=== PATIENT | male | born 2005 | race Caucasian/White ===

== ENCOUNTER 2024-10-17 16:42 | Emergency (ER) | payer SELFPAY ==
[~2024-10-17] VITALS: Ht 180.3 cm; Wt 54.0 kg
[2024-10-17 16:53] VITALS: O2SAT 98
[2024-10-17 16:56] VITALS: BP 124/79; PULSE 92; RESP 18; TEMP 37.2; O2SAT 99
[2024-10-17 18:01] LABS: BASOPHILS % 0.7 % (0.0-2.0); EOSINOPHILS % 2.9 % (0.0-5.0); HEMATOCRIT. 40.9 % (42.0-52.0); HEMOGLOBIN. 14.0 g/dL (14.0-18.0); LYMPHOCYTES % 13.2 % (20.0-50.0); MEAN PLATELET VOLUME 6.8 fl (7.4-10.4); MONOCYTES % 5.7 % (2.0-8.0); NEUTROPHILS % 77.5 % (40.0-76.0); PLATELET 363 x1000/uL (130-400); RED BLOOD CELL COUNT 4.47 mill/uL (4.7-6.1); RED CELL DISTRIBUTION WIDTH 14.0 % (11.6-14.6)
[2024-10-17 18:13] LABS: CREATININE 0.7 mg/dL (0.6-1.3); UREA NITROGEN BLOOD 10 mg/dL (9-23)
[2024-10-17 18:15] LABS: ASPARTATE AMINOTRANSFERASE 22 IU/L (<34); BILIRUBIN DIRECT 0.2 mg/dL (<=3.0); BILIRUBIN TOTAL 0.7 mg/dL (0.1-1.0); PROTEIN TOTAL 7.8 g/dL (6.0-8.3)
[2024-10-17] MEDS ORDERED: SODIUM CHLORIDE 0.9% 1,000 ML IV ONE (18:15)
[2024-10-17] MEDS ORDERED: PIPERACILLIN/TAZO 3.375G/50ML 50 ML IV SCH (22:00)
== END 2024-10-17 18:20 | disposition left against medical advice (07) ==
LOC: ER 16:42
DX: L02.511 Cutaneous abscess of right hand (principal)
CPT/HCPCS: 99283; 80076; 80048; 85025; 87040; 36415; J7030